=== PATIENT | male | born 1960 | race African-American/Black ===

== ENCOUNTER 2020-09-08 08:29 | Emergency (ER) | payer SELFPAY ==
[~2020-09-08] VITALS: Ht 172.7 cm; Wt 57.0 kg
[2020-09-08 08:32] VITALS: BP 94/63
[2020-09-08] MEDS ORDERED: SODIUM CHLORIDE 0.9% 10ML VIAL ONE (18:00)
[2020-09-08] MEDS ORDERED: CALCIUM CHLORIDE 1GM/10ML SYR IV ONE (18:00)
[2020-09-08] MEDS ORDERED: AMIODARONE HCL 50MG/ML 3ML VIAL IV ONE (18:00)
[2020-09-08] MEDS ORDERED: EPINEPHRINE 0.1MG/ML (1:10,000) 10ML SYR ONE (18:00)
[2020-09-08] MEDS ORDERED: DEXTROSE 50% WATER 50ML SYRINGE IV ONE (18:00)
[2020-09-08] MEDS ORDERED: SODIUM BICARBONATE 8.4% 1 MEQ/ML 50ML SYR IV ONE (18:00)
== END 2020-09-08 10:52 ==
LOC: ER 08:36
DX: I46.9 Cardiac arrest, cause unspecified (principal); E16.2 Hypoglycemia, unspecified; I49.9 Cardiac arrhythmia, unspecified; F19.10 Other psychoactive substance abuse, uncomplicated
CPT/HCPCS: 31500; 36556; 82962; 92950; 93005; 99291; J0282; J3490; Z7610